=== PATIENT | female | born 1960 | race Caucasian/White ===

== ENCOUNTER 2025-02-03 14:48 | Emergency (ER) | payer SELFPAY ==
[2025-02-03 14:53] VITALS: BP 138/71
[2025-02-03 16:35] VITALS: BMI 37.6
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
[2025-02-03 18:53] VITALS: BP 116/94
== END 2025-02-03 19:04 | disposition home or self-care (01) ==
LOC: EMR 14:48
PROVIDERS: EMERGENCY PHYSICIAN Emergency Medicine; FAMILY PHYSICIAN Family Medicine
DX: S09.90XA Unspecified injury of head, initial encounter (principal); S10.83XA Contusion of other specified part of neck, initial encounter; M54.2 Cervicalgia; M25.512 Pain in left shoulder; M25.511 Pain in right shoulder; M25.552 Pain in left hip; M25.562 Pain in left knee; V43.52XA Car driver injured in collision with other type car in traffic accident, initial encounter
CPT/HCPCS: 99284; 70450; 71120; 72110; 72125; 73030; 73502; 73564